=== PATIENT | female | born 1980 | race Caucasian/White ===

== ENCOUNTER 2020-07-10 17:10 | Emergency (ER) | payer MEDICAID ==
[~2020-07-10] VITALS: Ht 162.6 cm; Wt 63.5 kg
[2020-07-10] MEDS ORDERED: AMOX-430 PO (17:22)
--- NOTE | 2020-07-10 17:28 | NUR ---
Dr. Pablo at bedside for MSE
[2020-07-10] MEDS ORDERED: IV NORMAL SALINE 1000 ML BAG IV ONE (17:45)
[2020-07-10 18:11] LABS: *URINE HCG, QUAL NEG (NEGATIVE)
[2020-07-10 18:16] LABS: BASOPHILS % (AUTO) 0.4 % (0.0-2.0); EOSINOPHILS % (AUTO) 0.7 % (0.0-7.0); HEMATOCRIT 43.6 % (31.2-41.9); HEMOGLOBIN 14.8 g/dL (10.9-14.3); LYMPHOCYTES # (AUTO) 2.7 K/uL (20.0-40.0); LYMPHOCYTES % (AUTO) 46.7 % (20.5-51.5); MEAN CORPUSCULAR HEMOGLOBIN 30.2 uug (24.7-32.8); MEAN CORPUSCULAR HGB CONC 34 g/dL (32.3-35.6); MEAN CORPUSCULAR VOLUME 88.6 fL (75.5-95.3); MONOCYTES # (AUTO) 0.3 K/uL (2.0-10.0); MONOCYTES % (AUTO) 5.8 % (0.0-11.0); NEUTROPHILS # (AUTO) 2.7 K/uL (1.8-8.9); NEUTROPHILS % (AUTO) 46.4 % (38.5-71.5); PLATELET COUNT (AUTO) 277 K/uL (179-408); RED BLOOD CELL COUNT(AUTO) 4.92 MIL/uL (3.63-4.92); WHITE BLOOD COUNT (AUTO) 5.8 K/uL (3.8-11.8)
[2020-07-10 18:19] LABS: CREATININE 0.9 mg/dL (0.6-1.3); POTASSIUM 3.9 mmol/L (3.5-5.1)
[2020-07-10] MEDS ORDERED: predniSONE 20 MG TABLET PO ONE (18:45)
[2020-07-10] MEDS ORDERED: predniSONE 20 MG TABLET ONE (18:52)
--- NOTE | 2020-07-10 19:17 | NUR ---
Patient discharged to home in stable condition. Patient noted ambulating with steady gate, Rx given, took all belongings, no signs of acute distress. Written and verbal after care instructions given. Patient verbalizes understanding of instructions. Stressed follow up or return to ER for worsening s/s.
[2020-07-10 19:21] VITALS: BP 130/75
== END 2020-07-10 19:20 | disposition home or self-care (01) ==
LOC: ER 17:10
DX: G51.0 Bell's palsy (principal); H66.91 Otitis media, unspecified, right ear; R03.0 Elevated blood-pressure reading, without diagnosis of hypertension; Z86.73 Personal history of transient ischemic attack (TIA), and cerebral infarction without residual deficits; G93.89 Other specified disorders of brain
CPT/HCPCS: 36415; 70450; 80048; 84703; 85025; 96360; 99284; J7512; A4663; J7030

== ENCOUNTER 2022-01-10 21:38 | Emergency (ER) | payer MEDICAID ==
[~2022-01-10] VITALS: Ht 170.2 cm; Wt 74.8 kg
[~2022-01-10 21:38] MED LIST: AMOX-430 PO
--- NOTE | 2022-01-10 22:08 | NUR ---
Dr. Sewell at bedside, MSE in progress.
--- NOTE | 2022-01-10 22:15 | NUR ---
Xray at bedside.
[2022-01-10 22:19] LABS: *URINE HCG, QUAL NEGATIVE (NEGATIVE)
[2022-01-10] MEDS ORDERED: D-ME473S63 PO (23:04)
--- NOTE | 2022-01-10 23:10 | NUR ---
Patient discharged to home in stable condition. Written and verbal after care instructions given. Patient verbalizes understanding of instructions. Stressed follow up or return to ER for worsening s/s. Steady gait, denies any LAZARO/dizzyness. No changes in LOC. Accompanied by daughter.
[2022-01-10 23:11] VITALS: BP 114/70
== END 2022-01-10 23:12 | disposition home or self-care (01) ==
LOC: ER 21:39
DX: J20.9 Acute bronchitis, unspecified (principal); Z20.822 Contact with and (suspected) exposure to COVID-19; F17.210 Nicotine dependence, cigarettes, uncomplicated
CPT/HCPCS: 71045; 84703; A4663